=== PATIENT | female | born 1995 | race Caucasian/White ===

== ENCOUNTER 2017-07-28 22:39 | Emergency (ER) | payer OTHER, MEDICAID, SELFPAY ==
[2017-07-28 22:44] VITALS: BP 145/91; PULSE 98; RESP 22; TEMP 36.8; O2SAT 96
--- NOTE | 2017-07-28 22:45 | ED.URI ---
HPI - URI/Sore Throat General Chief Complaint: Upper Respiratory Symptoms Stated Complaint: RIB PAIN HURTS TO BREATH Time Seen by Provider: 07/28/17 22:44 Source: patient and RN notes reviewed Mode of arrival: ambulatory Limitations: no limitations History of Present Illness HPI Narrative: Patient is a 22-year-old female presents with cough and shortness of breath for about 1 week. She is not coughing anything up but she feels as though she can't take a deep breath. Now the right side of her ribs are hurting. It hurts to move. She does not think she has had fever she does have some nasal congestion. No sore throat. MD Complaint: cough and nasal congestion Onset (ago): week(s) Duration: constant Relieving factors: nothing Related Data Home Medications Medication Instructions Recorded Confirmed CA PANTOTHENATE/FOLIC ACID/VIT 1 tab PO QDAY #0 05/06/12 (MULTIVITAMIN) [STELAZINE] #0 09/25/16 aripiprazole [Abilify] #0 09/25/16 lamotrigine [Lamictal] #0 09/25/16 lithium carbonate 07/28/17 Previous Rx's Medication Instructions Recorded fluoxetine 40 mg PO QDAY #90 cap 12/21/15 drospirenone-ethinyl estradiol 1 tab PO QDAY #3 pac 06/28/16 [Jennifer (28)] sulfamethoxazole-trimethoprim 1 tab PO BID #12 tab 09/26/16 sulfamethoxazole-trimethoprim 1 tab PO BID #12 tab 10/07/16 Allergies Allergy/AdvReac Type Severity Reaction Status Date / Time No Known Drug Allergies Allergy Verified 07/28/17 22:47 Review of Systems Review of Systems All systems reviewed & are unremarkable except as noted in HPI and below Constitutional Denies chills, Denies fever(s), Denies headache(s), Denies lethargy and Denies weakness ENT Ears, Nose, Mouth, and Throat: Denies headache(s) Cardiovascular Denies chest pain, Denies irregular heart rhythm, Denies lightheadedness, Denies palpitations and Denies orthopnea Respiratory Reports as per HPI and Reports system reviewed and no additional complaints, except as docu Gastrointestinal Gastrointestinal: Denies abdominal pain, Denies diarrhea, Denies nausea and Denies vomiting Neurologic Denies headache(s) and Denies weakness Endocrine Denies palpitations PFSH Family History Father Age: 44 Hypertension High cholesterol Mother Age: 41 Mental health problem Crohn's disease Grandmother Age: 67 Diabetes mellitus Hypertension High cholesterol Exam Const General: cooperative and well developed Nutritional Appearance: well nourished Orientation: alert, awake, oriented x3 and not confused Chest Chest: normal inspection of the chest Resp Effort & Inspection: normal respiratory effort, able to speak in complete sentences, no respiratory distress and no use of accessory muscles Auscultation: clear to auscultation bilaterally, no rales, no rhonchi and no wheezes Cardio Rate: regular rate Rhythm: regular rhythm Heart Sounds: no click, no gallops, no murmurs and no rubs Pulses: normal peripheral pulses Skin General: no rashes or lesions noted, No jaundice and No petechiae MDM - URI/Sore Throat Imaging Data Chest x-ray: Attestation: I personally reviewed and interpreted this imaging study as follows: My impression: no acute process Course Orders Ordered: ED Orders 07/28/17 22:55 XR chest 2V Stat Discontinued Medications Albuterol (Ventolin) 2.5 mg INH NOW ONE Stop: 07/28/17 22:56 Last Admin: 07/28/17 23:13 Dose: 2.5 mg Albuterol (Ventolin Hfa Prepack) 1 box MISC SEEINSTR ONE Stop: 07/28/17 23:26 Last Admin: 07/28/17 23:32 Dose: 1 box Last Vital Signs Temp 98.2 F 07/28/17 22:44 Pulse 96 H 07/28/17 23:32 Resp 18 07/28/17 23:17 BP 148/94 H 07/28/17 23:32 Pulse Ox 99 07/28/17 23:17 Discharge Plan Departure Patient Disposition: Home, Self-Care Clinical Impression: Mild intermittent reactive airway disease Discharge Date/Time: 07/28/17 23:37 Interventions: ED Discharge Assessment Last Done: 07/28/17 23:37 Instructions: DI for Reactive Airway Disease-Adult Activity Restrictions/Additional Instructions: *You have been diagnosed with reactive airways-airway spasming *What to do: No need for antibiotics at this time likely due to pollen allergies, possible viral infection as well *Take medications as directed -albuterol inhaler with spacer every 4 hr if needed for coughing or shortness of breath *Follow up with your primary care provider in 2-3 days *Return to ER if you should have any new, worsening or concerning symptoms Prescriptions: No Action CA PANTOTHENATE/FOLIC ACID/VIT (MULTIVITAMIN) 1 tab PO QDAY Qty: 0 RF: 0 fluoxetine 40 MG capsule 40 mg PO QDAY Qty: 90 RF: 3 drospirenone-ethinyl estradiol [Jennifer (28)] 0.03 MG/3 MG tablet 1 tab PO QDAY Qty: 3 RF: 3 lamotrigine [Lamictal] 100 MG tablet Qty: 0 RF: 0 [STELAZINE] Qty: 0 RF: 0 aripiprazole [Abilify] 2 MG tablet Qty: 0 RF: 0 sulfamethoxazole-trimethoprim 800 MG/160 MG tablet 1 tab PO BID Qty: 12 RF: 0 sulfamethoxazole-trimethoprim 800 MG/160 MG tablet 1 tab PO BID Qty: 12 RF: 0 lithium carbonate RF: 0
--- NOTE | 2017-07-28 22:55 | DI.RAD.S_ITS ---
PROCEDURE: XR CHEST 2V INDICATIONS: chest pain right side with cough TECHNIQUE: 2 views of the chest were acquired. COMPARISON: None. FINDINGS: Surgical changes and devices: None. Lungs and pleura: No pleural effusions or pneumothorax. Lungs are clear. Mediastinum: Mediastinal contours are normal. Heart size is normal. Bones and chest wall: No suspicious bony abnormalities. Soft tissues appear unremarkable. IMPRESSION: No source of chest pain found. Dictated by: Gallito Felton M.D. on 07/29/2017 at 9:07 Approved by: Gallito Felton M.D. on 07/29/2017 at 9:08
[2017-07-28] MEDS: ALBUTEROL 2.5 MG/3 ML NEB INH (23:13)
[2017-07-28 23:17] VITALS: PULSE 97; RESP 18; O2SAT 99
[2017-07-28 23:32] VITALS: BP 148/94; PULSE 96
[2017-07-28] MEDS: ALBUTEROL HFA PREPACK 1 BOX MISC (23:32)
== END 2017-07-28 23:37 | disposition home or self-care (01) ==
PROVIDERS: Emergency Provider Emergency Medicine; Family Provider Pediatrics; PCP Family Medicine
DX: J45.20 Mild intermittent asthma, uncomplicated (principal)
CPT/HCPCS: 71046; 94640; 99282; 99283; J7613

== ENCOUNTER 2019-12-08 03:09 | Emergency (ER) | payer OTHER, MEDICARE, MEDICAID, SELFPAY ==
--- NOTE | 2019-12-08 03:11 | ED.SYNCOPE ---
HPI - Syncope General Chief Complaint: Headache Stated Complaint: having fainting spells back pain migraine x 8 days Time Seen by Provider: 12/08/19 03:10 Source: patient and family Mode of arrival: Ambulatory Limitations: no limitations History of Present Illness HPI narrative: 24F smoker presents with a friend and a list of multiple complaints including headache, chest pain, nausea over the past week. She has been having headaches for 3 years but has yet to have an evaluation for it. She denies blurred or double vision. She denies any fever, chills or neck pain. She states the pain is largely in the front of her forehead and squeezing in nature. It gets worse with bright lights and loud noise and has not improved with the use of ?migraine pills? period. Her chest pain is sharp and stabbing in nature in and the center of her chest. She denies any provocation, palliation or radiation. She denies shortness of breath, cough or hemoptysis. She denies any change in medications or diet. She has had episodes lightheadedness, particularly upon standing. She has PCOS and states it is frequent for her to have irregular periods, her last was in August but she denies any chance of being . She denies vaginal bleeding or discharge. She denies dysuria, frequency or urgency. MD complaint: felt faint and almost passed out Witnessed: no Injuries sustained associated with event: none Current symptoms: other Related Data Home Medications Medication Instructions Recorded Confirmed CA PANTOTHENATE/FOLIC ACID/VIT 1 tab PO QDAY #0 05/06/12 (MULTIVITAMIN) [STELAZINE] #0 09/25/16 aripiprazole [Abilify] #0 09/25/16 lamotrigine [Lamictal] #0 09/25/16 lithium carbonate 07/28/17 Previous Rx's Medication Instructions Recorded fluoxetine 40 mg PO QDAY #90 cap 12/21/15 drospirenone-ethinyl estradiol 1 tab PO QDAY #3 pac 06/28/16 [Jennifer (28)] sulfamethoxazole-trimethoprim 1 tab PO BID #12 tab 09/26/16 sulfamethoxazole-trimethoprim 1 tab PO BID #12 tab 10/07/16 Allergies Allergy/AdvReac Type Severity Reaction Status Date / Time No Known Drug Allergies Allergy Verified 07/28/17 22:47 Review of Systems Constitutional Constitutional: Denies chills, Denies fatigue, Denies fever(s), Denies frequent falls, Reports headache(s), Denies lethargy and Denies weakness Eyes Eyes: Denies change in vision, Denies eye discharge, Denies irritation and Denies loss of vision ENT Ears, Nose, Mouth, and Throat: Denies change in voice, Denies dizziness, Reports headache(s), Denies neck pain, Denies sore throat and Denies throat swelling Cardiovascular Cardiovascular: Reports chest pain, Denies irregular heart rhythm, Reports lightheadedness, Denies palpitations, Denies dyspnea, Denies dyspnea on exertion and Denies orthopnea Respiratory Respiratory: Denies cough, Denies dyspnea, Denies dyspnea on exertion and Denies wheezing Gastrointestinal Gastrointestinal: Denies abdominal pain, Denies change in bowel habits, Denies diarrhea, Denies nausea and Denies vomiting Musculoskeletal Musculoskeletal: Denies neck pain and Denies numbness Integumentary/Breasts Skin/Breast: Denies pruritus, Denies erythema, Denies rash and Denies wounds Neurologic Neurologic: Denies behavioral changes, Denies confusion, Denies dizziness, Denies frequent falls, Reports headache(s), Denies loss of vision, Denies numbness and Denies weakness Psychiatric Psychiatric: Denies anxiety, Denies behavioral changes, Denies confusion, Denies depression, Denies homicidal ideation and Denies suicidal ideation Endocrine Endocrine: Denies fatigue, Denies flushing and Denies palpitations Hematologic/Lymphatic Hematologic/Lymphatic: Denies easy bruising Allergic/Immunologic Allergic/Immunologic: Denies urticaria, Denies throat swelling and Denies wheezing Patient History Family History Father Age: 46 Hypertension High cholesterol Mother Age: 43 Mental health problem Crohn's disease Grandmother Age: 69 Diabetes mellitus Hypertension High cholesterol Social History Smoking Status: Current some day smoker Smoking Status: Current some day smoker alcohol intake frequency: 0-2 drinks per day Substance Use Type: marijuana Exam Narrative Exam Narrative: GENERAL: [24] year old patient appears stated age. Well-nourished, well-developed patient, in mild distress. HEAD: Atraumatic. Normocephalic. EYES: Pupils equal round and reactive. Extraocular motions intact. No scleral icterus. No injection or drainage. ENT: Nose without bleeding, purulent drainage. Throat without erythema, tonsillar hypertrophy or exudate. Airway patent. NECK: Trachea midline. Non tender CARDIOVASCULAR: Regular rate and rhythm without murmurs, gallops, or rubs. RESPIRATORY: Clear to auscultation. Breath sounds equal bilaterally. No wheezes, rales, or rhonchi. GASTROINTESTINAL: Abdomen soft, non-tender, nondistended. EXTREMITIES: No edema or joint tenderness. BACK: Nontender without deformity or crepitance. No flank tenderness. NEURO: AOx3. SKIN: No rash or erythema of visible areas Initial Vital Signs Initial Vital Signs: Vital Signs Temperature 98.9 F 12/08/19 03:24 Pulse Rate 85 12/08/19 03:24 Respiratory Rate 17 12/08/19 03:24 Blood Pressure 165/107 H 12/08/19 03:24 Pulse Oximetry 97 12/08/19 03:24 Course Orders Ordered: Discontinued Medications Diphenhydramine HCl (Benadryl) 25 mg IV NOW ONE Stop: 12/08/19 04:38 Last Admin: 12/08/19 04:45 Dose: 25 mg Documented by: PHILIN Sodium Chloride (Normal Saline 0.9%) 1,000 mls @ 1,000 mls/hr IV BOLUS ONE Stop: 12/08/19 04:10 Last Infusion: 12/08/19 05:15 Dose: 0 mls/hr Documented by: Admin: 12/08/19 04:30 Dose: 1,000 mls/hr Documented by: RMULIIN Ketorolac Tromethamine (Toradol) 15 mg IV NOW ONE Stop: 12/08/19 04:38 Last Admin: 12/08/19 04:43 Dose: 15 mg Documented by: GLENARTIN Metoclopramide HCl (Reglan) 5 mg IV NOW ONE Stop: 12/08/19 04:38 Last Admin: 12/08/19 04:42 Dose: 5 mg Documented by: RMARTIN Vital Signs Vital signs: Vital Signs - 8 hr 12/08/19 03:24 Temperature 98.9 F Pulse Rate 85 Respiratory Rate 17 Blood Pressure 165/107 H Pulse Oximetry 97 MDM - Syncope Lab Data Result diagrams: 12/08/19 04:06 12/08/19 04:06 Labs: Lab Results 12/08/19 12/08/19 12/08/19 Range/Units 04:06 04:06 04:06 WBC 10.7 (4.5-11.0) X10^3/uL RBC 4.70 (4.0-5.2) X10^6/uL Hgb 13.1 (12.0-16.0) g/dL Hct 39.3 (36-46) % MCV 83.6 (80-100) fL MCH 27.9 (26-34) PG MCHC 33.3 (30-36) % RDW 14.9 H (11.6-14.8) % Plt Count 353 (150-400) X10^3/uL Neut % (Auto) 45.4 L (50-75) % Lymph % (Auto) 40.2 H (25-40) % [place] % (Auto) 11.0 (3-14) % Eos % (Auto) 2.8 (2-4) % Baso % (Auto) 0.6 (0-2) % Neut # (Auto) 4900 (9763-9291) /uL Lymph # (Auto) 4300 (0715-6039) /uL [place] # (Auto) 1200 H (0-900) /uL Eos # (Auto) 300 (0-450) /uL Baso # (Auto) 100 (0-100) /uL D-Dimer < 200 (<230) ng/mL Sodium 141 (137-145) mmol/L Potassium 4.3 (3.4-5.1) mmol/L Chloride 106 (98-107) mmol/L Carbon Dioxide 27 (22-32) mmol/L BUN 10 (7-17) mg/dL Creatinine 0.68 (0.52-1.04) mg/dL Estimated GFR > 60.0 (>60) mL/min BUN/Creatinine Ratio 14.7 (6-22) Glucose 87 (70-100) mg/dL Calcium 9.2 (8.4-10.2) mg/dL Point of Care Testing Test Results Negative Urine Dip Bedside Urine Glucose Negative Bedside Urine Bilirubin - Negative Bedside Urine Ketone - Negative Urine Specific [place] 1.030 Bedside Urine Occult Blood - Negative Bedside Urine pH 6.0 Bedside Urine Protein - Negative Bedside Urine Urobilinogen - Negative Bedside Urine Nitrite - Negative Bedside Urine Leukocytes - Negative Esterase Discharge Plan Departure Patient Disposition: Home Clinical Impression: Atypical chest pain Headache Qualifiers: Headache type: unspecified Headache chronicity pattern: acute headache Intractability: not intractable Qualified Code(s): R51 - Headache Discharge Date/Time: 12/08/19 05:17 Instructions: DI for Headache Activity Restrictions/Additional Instructions: *You have been diagnosed with [headache, atypical chest pain near syncope] *What to do: *Take medications as directed *Follow up with your primary care provider in 2-3 days, call for an appointment. Let them know you were seen in the Emergency Department and that we ask that you be seen in follow up *Return to ER if you should have any new, worsening or concerning symptoms Prescriptions: No Action CA PANTOTHENATE/FOLIC ACID/VIT (MULTIVITAMIN) 1 tab PO QDAY Qty: 0 RF: 0 fluoxetine 40 MG capsule 40 mg PO QDAY Qty: 90 RF: 3 drospirenone-ethinyl estradiol [Jennifer (28)] 0.03 MG/3 MG tablet 1 tab PO QDAY Qty: 3 RF: 3 lamotrigine [Lamictal] 100 MG tablet Qty: 0 RF: 0 [STELAZINE] Qty: 0 RF: 0 aripiprazole [Abilify] 2 MG tablet Qty: 0 RF: 0 sulfamethoxazole-trimethoprim 800 MG/160 MG tablet 1 tab PO BID Qty: 12 RF: 0 sulfamethoxazole-trimethoprim 800 MG/160 MG tablet 1 tab PO BID Qty: 12 RF: 0 lithium carbonate RF: 0 Referrals: Emely Miller MD [Primary Care Provider] -
--- NOTE | 2019-12-08 03:17 | DI.RAD.S_ITS ---
PROCEDURE: XR CHEST 1V INDICATIONS: chest pain, near syncope TECHNIQUE: One view of the chest was acquired. COMPARISON: [facility], CR, XR CHEST 2V, 07/28/2017, 22:43. FINDINGS: Surgical changes and devices: None. Lungs and pleura: Lungs are clear. No pleural effusions or pneumothorax. Mediastinum: Mediastinal contours appear normal. Heart size is normal. Elevated right hemidiaphragm. Bones and chest wall: No suspicious bony lesions. Overlying soft tissues appear unremarkable. IMPRESSION: No acute cardiopulmonary disease process. Dictated by: Mirta Rivera MD, PhD on 12/08/2019 at 8:27 Approved by: Mirta Rivera MD, PhD on 12/08/2019 at 8:30
[2019-12-08 03:24] VITALS: BP 165/107; PULSE 85; RESP 17; TEMP 37.2; O2SAT 97; BMI 51.5
[2019-12-08 04:23] LABS: Add Manual Diff / Slide Review NO; Basophils Absolute Auto 100 /uL (0-100); Basophils Percent Auto 0.6 % (0-2); Eosinophils Absolute Auto 300 /uL (0-450); Eosinophils Percent Auto 2.8 % (2-4); Hematocrit 39.3 % (36-46); Hemoglobin 13.1 g/dL (12.0-16.0); Lymphocytes Absolute Auto 4300 /uL (1100-4500); Lymphocytes Percent Auto 40.2 % (25-40); Mean Corpuscular HGB Conc 33.3 % (30-36); Mean Corpuscular Hemoglobin 27.9 PG (26-34); Mean Corpuscular Volume 83.6 fL (80-100); Monocytes Absolute Auto 1200 /uL (0-900); Neutrophils Absolute Auto 4900 /uL (1500-7000); Neutrophils Percent Auto 45.4 % (50-75); Platelet Count 353 X10^3/uL (150-400); Red Cell Distribution Width 14.9 % (11.6-14.8); White Blood Cell Count 10.7 X10^3/uL (4.5-11.0)
[2019-12-08] MEDS: SODIUM CHLORIDE 0.9% 1,000 ML 1000 ML IV (04:30)
[2019-12-08 04:32] LABS: D Dimer < 200 ng/mL (<230)
[2019-12-08 04:34] LABS: BUN Creatinine Ratio 14.7 (6-22); Blood Urea Nitrogen 10 mg/dL (7-17); Calcium 9.2 mg/dL (8.4-10.2); Carbon Dioxide 27 mmol/L (22-32); Chloride 106 mmol/L (98-107); Estimated Glomerular Filt Rate > 60.0 mL/min (>60); Glucose 87 mg/dL (70-100); HEMOLYSIS < 15 (0-50); Potassium 4.3 mmol/L (3.4-5.1); Sodium 141 mmol/L (137-145)
[2019-12-08] MEDS: METOCLOPRAMIDE 10 MG/2 ML INJ 5 MG IV (04:42)
[2019-12-08] MEDS: KETOROLAC 60 MG/2 ML VIAL 15 MG IV (04:43)
[2019-12-08] MEDS: diphenhydrAMINE 50 MG/ML VIAL 25 MG IV (04:45)
[2019-12-08 05:17] VITALS: BP 175/81; PULSE 95; RESP 16; O2SAT 96
== END 2019-12-08 05:17 | disposition home or self-care (01) ==
PROVIDERS: Emergency Provider Emergency Medicine; Family Provider Pediatrics; PCP Family Medicine
DX: R51 Headache (principal); R07.89 Other chest pain
CPT/HCPCS: 36415; 71045; 80048; 81003; 81025; 85025; 85379; 93005; 93010; 96361; 96374; 96375; 99284; J1200; J1885; J2765

== ENCOUNTER 2020-10-09 16:59 | Emergency (ER) | payer OTHER, MEDICARE, MEDICAID, SELFPAY ==
[2020-10-09 17:04] VITALS: BP 146/84; PULSE 87; RESP 12; TEMP 36.3; O2SAT 98; BMI 56.6
--- NOTE | 2020-10-09 18:15 | DI.US.S_ITS ---
PROCEDURE: US PELVIC COMPLETE INDICATIONS: possible ruptured cyst with PCOS TECHNIQUE: Real-time scanning was performed of the pelvic organs, with image documentation. Additional endovaginal scanning was necessary due to incomplete visualization of the adnexal and endometrial structures by transabdominal scanning. COMPARISON: [facility], US, US PELVIC COMPLETE WITH TRANSVAGINAL, 04/22/2019, 16:06. FINDINGS: Uterus: Uterus is normal in size at 7.8 x 3.7 x 3.8 cm. The endometrium measures 8 mm in combined thickness. Small nabothian cysts are present. Ovaries: The right ovary measures 3.9 x 1.9 x 2.1 cm. The left ovary measures 2.3 x 1.7 x 1.9 cm. Arterial Doppler flow is visualized bilaterally. Small ovarian follicles are seen bilaterally. Other: A physiologic amount of fluid is seen in the pelvic cul-de-sac. IMPRESSION: No acute sonographic abnormality is seen in the pelvis. No sonographic signs of ovarian torsion. Recommend clinical correlation. Dictated by: Bill Ellington M.D. on 10/09/2020 at 19:09 Approved by: Bill Ellington M.D. on 10/09/2020 at 19:11
[2020-10-09 19:35] LABS: Bacteria Urine Moderate (10-30); Culture Indicated Urine Specimen Cultured; Mucus Urine 1+ (Negative); RBC Urine 0-1/HPF (0-5/HPF); Squamous Epithelial Cell Urine 1-5 /HPF (0-5/HPF); Transitional Epi Cells Urine 5-10/HPF (0-5/HPF); WBC Urine 10-30/HPF (0-5/HPF)
--- NOTE | 2020-10-09 19:42 | ED_ITS ---
HPI - General Adult General Chief complaint: Abdominal Pain Stated complaint: RAPTURED CYST Time Seen by Provider: 10/09/20 18:15 Mode of arrival: Ambulatory History of Present Illness HPI narrative: Patient is a 25-year-old female with a history of PCOS who is her e for evaluation of left-sided adnexa pain. It has been present for about 1 week. Is having some vaginal discharge. Also having some dysuria. No fevers. States it does feel somewhat like a prior ruptured cyst. Has taken some ibuprofen with some improvement. Related Data Home Medications Medication Instructions Recorded Confirmed CA PANTOTHENATE/FOLIC ACID/VIT 1 tab PO QDAY #0 05/06/12 (MULTIVITAMIN) [STELAZINE] #0 09/25/16 aripiprazole 2 mg tablet (Abilify) #0 09/25/16 lamotrigine 100 mg tablet #0 09/25/16 (Lamictal) lithium carbonate 07/28/17 Previous Rx's Medication Instructions Recorded fluoxetine 40 mg capsule 40 mg PO QDAY #90 cap 12/21/15 drospirenone 3 mg-ethinyl 1 tab PO QDAY #3 pac 06/28/16 estradiol 0.03 mg tablet (Jennifer (28)) sulfamethoxazole 800 1 tab PO BID #12 tab 09/26/16 mg-trimethoprim 160 mg tablet sulfamethoxazole 800 1 tab PO BID #12 tab 10/07/16 mg-trimethoprim 160 mg tablet Allergies Allergy/AdvReac Type Severity Reaction Status Date / Time No Known Drug Allergies Allergy Verified 10/09/20 17:11 Review of Systems Constitutional Constitutional: Denies fever(s) Cardiovascular Cardiovascular: Reports system reviewed and no additional complaints, except as documented Respiratory Respiratory: Reports system reviewed and no additional complaints, except as documented Gastrointestinal Gastrointestinal: Reports as per HPI Genitourinary Genitourinary: Reports as per HPI Musculoskeletal Musculoskeletal: Denies back pain Integumentary/Breasts Skin/Breast: Reports system reviewed and no additional complaints, except as documented Neurologic Neurologic: Reports system reviewed and no additional complaints, except as documented Psychiatric Psychiatric: Reports system reviewed and no additional complaints, except as documented Hematologic/Lymphatic On Anticoagulants: No Allergic/Immunologic Allergic/Immunologic: Reports system reviewed and no additional complaints, except as documented Patient History Medical History Bipolar disorder Depression Suicidal ideation UTI (urinary tract infection) Family History Father Age: 47 Hypertension High cholesterol Mother Age: 44 Mental health problem Crohn's disease Grandmother Age: 70 Diabetes mellitus Hypertension High cholesterol Social History Smoking Status: Current some day smoker Smoking Status: Current some day smoker alcohol intake frequency: 0-2 drinks per day Substance Use Type: marijuana Exam Initial Vital Signs Initial Vital Signs: Vital Signs Temperature 97.4 F L 10/09/20 17:04 Pulse Rate 87 10/09/20 17:04 Respiratory Rate 12 10/09/20 17:04 Blood Pressure 146/84 H 10/09/20 17:04 Pulse Oximetry 98 10/09/20 17:04 Const General: cooperative and comfortable HENMT Head: normal to inspection and normocephalic Resp Auscultation: clear to auscultation bilaterally Cardio Rate: regular rate Rhythm: regular rhythm GI Inspection: normal to inspection Palpation: soft, No firm, No guarding, No mass and tender (Left adnexa) Skin General: no rashes or lesions noted Neuro General: patient alert, patient awake, patient oriented x3 and moves all extremities Extrem General: normal to inspection and capillary refill normal Psych Appearance: grossly normal and well kempt Course Orders Ordered: ED Orders 10/09/20 18:15 US pelvic complete Stat Vital Signs Vital signs: Vital Signs - 8 hr 10/09/20 20:02 Pulse Rate 94 H Respiratory Rate 16 Blood Pressure 147/84 H Pulse Oximetry 95 Medical Decision Making Lab Data Lab results reviewed: Yes I reviewed the patient's lab results. Labs: Lab Results 10/09/20 Range/Units 16:15 Urine RBC 0-1/hpf (0-5/HPF) Urine WBC 10-30/hpf H (0-5/HPF) Ur Squamous Epith Cells 1-5 /hpf (0-5/HPF) Ur Transition Epith Cell 5-10/hpf H (0-5/HPF) Urine Bacteria Moderate (10-30) H (None) Urine Mucus 1+ H (Negative) Ur Culture Indicated? Specimen cultured Point of Care Testing Test Results Negative Urine Dip Bedside Urine Glucose Negative Bedside Urine Bilirubin - Negative Bedside Urine Ketone - Negative Bedside Urine Occult Blood - Negative Bedside Urine Protein - Negative Bedside Urine Urobilinogen - Negative Bedside Urine Nitrite - Negative Bedside Urine Leukocytes + 70 Esterase Point of care testing: Point of Care Testing Test Results Negative Urine Dip Bedside Urine Glucose Negative Bedside Urine Bilirubin - Negative Bedside Urine Ketone - Negative Bedside Urine Occult Blood - Negative Bedside Urine Protein - Negative Bedside Urine Urobilinogen - Negative Bedside Urine Nitrite - Negative Bedside Urine Leukocytes + 70 Esterase Imaging Data US - CERTIFIED NURSING ATTENDANT: Radiologist's Impression: [address] [id number] ReportSigned Patient: Alicia Mays MMR#: [id number]: 1995Acct:[id number]/Sex: 25 / FDate of Service: 10/09/20Loc: EDAccession Number: [id number] Procedure: US pelvic complete Ordering Provider: Flako Chaiedz D.O. PROCEDURE: US PELVIC COMPLETE INDICATIONS: possible ruptured cyst with PCOS TECHNIQUE: Real-time scanning was performed of the pelvic organs, with image documentation. Additional endovaginal scanning was necessary due to incomplete visualization of the adnexal and endometrial structures by transabdominal scanning. COMPARISON: [email or web address], US, US PELVIC COMPLETE WITH TRANSVAGINAL, 04/22/2019, 16:06. FINDINGS: Uterus: Uterus is normal in size at 7.8 x 3.7 x 3.8 cm. The endometrium measures 8 mm in combined thickness. Small nabothian cysts are present. Ovaries: The right ovary measures 3.9 x 1.9 x 2.1 cm. The left ovary measures 2.3 x 1.7 x 1.9 cm. Arterial Doppler flow is visualized bilaterally. Small ovarian follicles are seen bilaterally. Other: A physiologic amount of fluid is seen in the pelvic cul-de-sac. IMPRESSION: No acute sonographic abnormality is seen in the pelvis. No sonographic signs of ovarian torsion. Recommend clinical correlation. Dictated by: Bill Ellington M.D. on 10/09/2020 at 19:09 Approved by: Bill Ellington M.D. on 10/09/2020 at 19:11 [facility] Narrative Medical decision making narrative: Patient has a benign abdominal exam today. The x-ray did not show any signs of ovarian torsion or of a cyst. She does have some free fluid in her pelvis and potentially she has ruptured a cyst causing her discomfort. I have low suspicion for other intra-abdominal surgical pathology given her exam today so feel that we should wait on the CT scan. She is having some urinary frequency. She does have bacteria and white blood cells in her urine but also quite a bit of epi cells. Because of this we will wait for a culture to results before treating with any antibiotics. She was informed of a culture that was pending at the time of her discharge will contact her if we need to start antibiotics. She was given strict return precautions and follow-up instructions. She expressed understanding and agreement. Discharge Plan Departure Patient Disposition: Home Clinical Impression: Abdominal pain Instructions: DI for Abdominal Pain-Adult Activity Restrictions/Additional Instructions: A urine culture was pending at the time of your discharge. We will contact you if we need to start any antibiotics. Continue the rest of your medications as directed. Keep all of your scheduled medical appointments. Return to the emergency department for any new or worsening symptoms Prescriptions: No Action CA PANTOTHENATE/FOLIC ACID/VIT (MULTIVITAMIN) 1 tab PO QDAY Qty: 0 RF: 0 fluoxetine 40 MG capsule 40 mg PO QDAY Qty: 90 RF: 3 drospirenone-ethinyl estradiol [Jennifer (28)] 0.03 MG/3 MG tablet 1 tab PO QDAY Qty: 3 RF: 3 lamotrigine [Lamictal] 100 MG tablet Qty: 0 RF: 0 [STELAZINE] Qty: 0 RF: 0 aripiprazole [Abilify] 2 MG tablet Qty: 0 RF: 0 sulfamethoxazole-trimethoprim 800 MG/160 MG tablet 1 tab PO BID Qty: 12 RF: 0 sulfamethoxazole-trimethoprim 800 MG/160 MG tablet 1 tab PO BID Qty: 12 RF: 0 lithium carbonate RF: 0
[2020-10-09 20:02] VITALS: BP 147/84; PULSE 94; RESP 16; O2SAT 95
== END 2020-10-09 20:02 | disposition home or self-care (01) ==
PROVIDERS: Emergency Provider Emergency Medicine; Family Provider Pediatrics
DX: R10.9 Unspecified abdominal pain (principal); N89.8 Other specified noninflammatory disorders of vagina; R30.0 Dysuria
CPT/HCPCS: 76830; 76856; 81003; 81015; 81025; 87086; 99282; 99283

== ENCOUNTER 2021-03-06 11:38 | Emergency (ER) | payer OTHER, MEDICAID, SELFPAY ==
[2021-03-06 11:44] VITALS: BP 146/100; PULSE 109; RESP 18; TEMP 37; O2SAT 99; BMI 60.5
--- NOTE | 2021-03-06 12:49 | DI.CT.S_ITS ---
PROCEDURE: CT LUMBAR SPINE WO CON INDICATIONS: Lower back pain TECHNIQUE: Noncontrast 3 mm thick sections acquired from the T12 level to the sacrum. Sagittal and coronal reformats were constructed. For radiation dose reduction, the following was used: automated exposure control. COMPARISON: None. FINDINGS: Image quality: Excellent. Bones: There is normal bony alignment. No acute vertebral body compression fractures. No suspicious lytic or blastic bony lesions. No pars defects. Soft tissues: No retroperitoneal masses or hematomas. Visualized aorta is normal in caliber. Gallbladder is surgically absent. Partially visualized intrauterine device is centrally positioned within the uterus where visualized. IMPRESSION: No fracture. No acute osseous lesion. If symptoms and/or clinical suspicion for pathology persists, evaluation with MRI should be considered for further assessment. Dictated by: Mirta Rivera MD, PhD on 03/06/2021 at 13:16 Approved by: Mirta Rivera MD, PhD on 03/06/2021 at 13:17
--- NOTE | 2021-03-06 12:51 | ED.BACK ---
HPI - Back Pain/Injury <Anitra Garcia PA-C - Last Filed: 03/06/21 14:00> General Chief Complaint: Back Pain/Injury Stated Complaint: Severe Lower back pain Time Seen by Provider: 03/06/21 11:59 Source: patient and family History of Present Illness HPI Narrative: 26-year-old female with past medical history PCOS presents to the ED with 4 months of lower back pain. Patient denies trauma, but says she went camping in October after which her lower back pain started. Pain does not radiate down the legs. Patient denies numbness, tingling, weakness. Patient denies IV drug use. Patient denies urinary hesitancy, saddle paresthesias. Denies fever, chills, chest pain, shortness of breath, cough, nausea, vomiting, dysuria, lightheadedness, dizziness, syncope. Patient states that Tylenol and ibuprofen make her jittery. Patient has been trying CBD cream with moderate relief. Related Data Home Medications Medication Instructions Recorded Confirmed CA PANTOTHENATE/FOLIC ACID/VIT 1 tab PO QDAY #0 05/06/12 (MULTIVITAMIN) [STELAZINE] #0 09/25/16 aripiprazole 2 mg tablet (Abilify) #0 09/25/16 lamotrigine 100 mg tablet #0 09/25/16 (Lamictal) lithium carbonate 07/28/17 Previous Rx's Medication Instructions Recorded fluoxetine 40 mg capsule 40 mg PO QDAY #90 cap 12/21/15 drospirenone 3 mg-ethinyl 1 tab PO QDAY #3 pac 06/28/16 estradiol 0.03 mg tablet (Jennifer (28)) sulfamethoxazole 800 1 tab PO BID #12 tab 09/26/16 mg-trimethoprim 160 mg tablet sulfamethoxazole 800 1 tab PO BID #12 tab 10/07/16 mg-trimethoprim 160 mg tablet Allergies Allergy/AdvReac Type Severity Reaction Status Date / Time No Known Drug Allergies Allergy Verified 10/09/20 17:11 Review of Systems <Anitra Garcia PA-C - Last Filed: 03/06/21 14:00> Review of Systems ROS Unobtainable: All systems reviewed & are unremarkable except as noted in HPI and below Constitutional Constitutional: Denies chills, Denies fatigue, Denies fever(s), Denies frequent falls, Denies lethargy and Denies weakness Eyes Eyes: Denies change in vision, Denies eye discharge, Denies irritation and Denies loss of vision ENT Ears, Nose, Mouth, and Throat: Denies change in voice, Denies dizziness, Denies neck pain, Denies sore throat and Denies throat swelling Cardiovascular Cardiovascular: Denies chest pain, Denies irregular heart rhythm, Denies lightheadedness, Denies palpitations, Denies dyspnea, Denies dyspnea on exertion and Denies orthopnea Respiratory Respiratory: Denies cough, Denies dyspnea, Denies dyspnea on exertion and Denies wheezing Gastrointestinal Gastrointestinal: Denies abdominal pain, Denies change in bowel habits, Denies diarrhea, Denies nausea and Denies vomiting Genitourinary Genitourinary: Denies hematuria, Denies flank pain, Denies urinary incontinence and Denies urinary urgency Musculoskeletal Musculoskeletal: Reports back pain, Denies muscle weakness, Denies neck pain, Denies numbness and Denies tingling Integumentary/Breasts Skin/Breast: Denies pruritus, Denies erythema, Denies rash and Denies wounds Neurologic Neurologic: Denies behavioral changes, Denies confusion, Denies dizziness, Denies frequent falls, Denies loss of vision, Denies numbness, Denies tingling and Denies weakness Psychiatric Psychiatric: Denies anxiety, Denies behavioral changes, Denies confusion, Denies depression, Denies homicidal ideation and Denies suicidal ideation Endocrine Endocrine: Denies fatigue, Denies flushing and Denies palpitations Hematologic/Lymphatic Hematologic/Lymphatic: Denies easy bruising Allergic/Immunologic Allergic/Immunologic: Denies urticaria, Denies throat swelling and Denies wheezing Patient History <Anitra Garcia PA-C - Last Filed: 03/06/21 14:00> Medical History Bipolar disorder Depression Suicidal ideation UTI (urinary tract infection) Family History Father Age: 48 Hypertension High cholesterol Mother Age: 45 Mental health problem Crohn's disease Grandmother Age: 71 Diabetes mellitus Hypertension High cholesterol Social History Smoking Status: Current some day smoker Smoking Status: Current some day smoker alcohol intake frequency: 0-2 drinks per day Substance Use Type: marijuana Exam <Anitra Garcia PA-C - Last Filed: 03/06/21 14:00> Initial Vital Signs Initial Vital Signs: Vital Signs Temperature 98.6 F 03/06/21 11:44 Pulse Rate 109 H 03/06/21 11:44 Respiratory Rate 18 03/06/21 11:44 Blood Pressure 146/100 H 03/06/21 11:44 Pulse Oximetry 99 03/06/21 11:44 Const General: cooperative, healthy appearing and comfortable [facility] Head: normal to inspection Eyes General: appearance normal, both eyes and all related structures Neck Neck: normal visual inspection Resp Effort & Inspection: normal respiratory effort Auscultation: clear to auscultation bilaterally Cardio Rate: regular rate Rhythm: regular rhythm General: No CVA tenderness Back/Spine/Pelvis Back: normal to inspection, No CVA tenderness, No ecchymosis and No erythema Thoracic/Lumbar Spine: pain with thoraco-lumbar ROM, paraspinal tenderness, lumbar spinal tenderness and straight leg raise positive Skin General: no rashes or lesions noted Neuro General: patient alert, patient awake and patient oriented x3 Other: Full range of motion. Strength and sensation intact. Neurovascularly intact. Eight normal. Extrem General: normal to inspection <Jenelle Morse DO - Last Filed: 03/09/21 09:12> Initial Vital Signs Initial Vital Signs: Vital Signs Temperature 98.6 F 03/06/21 11:44 Pulse Rate 109 H 03/06/21 11:44 Respiratory Rate 18 03/06/21 11:44 Blood Pressure 146/100 H 03/06/21 11:44 Pulse Oximetry 99 03/06/21 11:44 Course <Anitra Garcia PA-C - Last Filed: 03/06/21 14:00> Orders Ordered: Discontinued Medications Cyclobenzaprine HCl (Cyclobenzaprine 10 Mg Tablet) 10 mg PO NOW ONE Stop: 03/06/21 12:50 Last Admin: 03/06/21 13:01 Dose: 10 mg Documented by: LUZ MARIA Ketorolac Tromethamine (Ketorolac 30 Mg/Ml Vial) 15 mg IM NOW ONE Stop: 03/06/21 12:50 Last Admin: 03/06/21 13:01 Dose: 15 mg Documented by: LUZ MARIA Lidocaine (Lidocaine Patch 1 Each Adh..Patch) 1 each TOP NOW ONE Stop: 03/06/21 12:50 Last Admin: 03/06/21 13:01 Dose: 1 each Documented by: LUZ MARIA Vital Signs Vital signs: Vital Signs - 8 hr 03/06/21 11:44 Temperature 98.6 F Pulse Rate 109 H Respiratory Rate 18 Blood Pressure 146/100 H Pulse Oximetry 99 <Jenelle Morse DO - Last Filed: 03/09/21 09:12> Orders Ordered: Discontinued Medications Cyclobenzaprine HCl (Cyclobenzaprine 10 Mg Tablet) 10 mg PO NOW ONE Stop: 03/06/21 12:50 Last Admin: 03/06/21 13:01 Dose: 10 mg Documented by: LUZ MARIA Ketorolac Tromethamine (Ketorolac 30 Mg/Ml Vial) 15 mg IM NOW ONE Stop: 03/06/21 12:50 Last Admin: 03/06/21 13:01 Dose: 15 mg Documented by: LUZ MARIA Lidocaine (Lidocaine Patch 1 Each Adh..Patch) 1 each TOP NOW ONE Stop: 03/06/21 12:50 Last Admin: 03/06/21 13:01 Dose: 1 each Documented by: LUZ MARIA Vital Signs Vital signs: Vital Signs - 8 hr 03/06/21 11:44 Temperature 98.6 F Pulse Rate 109 H Respiratory Rate 18 Blood Pressure 146/100 H Pulse Oximetry 99 MDM - Back Pain/Injury <Anitra Garcia PA-C - Last Filed: 03/06/21 14:00> Lab Data Labs: Point of Care Testing Test Results Negative Urine Dip Bedside Urine Glucose Negative Bedside Urine Bilirubin - Negative Bedside Urine Ketone - Negative Urine Specific [place] 1.025 Bedside Urine Occult Blood - Negative Bedside Urine pH 6.0 Bedside Urine Protein - Negative Bedside Urine Urobilinogen - Negative Bedside Urine Nitrite - Negative Bedside Urine Leukocytes - Negative Esterase Imaging Data CT Lumbar spine: Radiologist's Impression: PROCEDURE:? CT LUMBAR SPINE WO CON ? INDICATIONS:? Lower back pain ? TECHNIQUE:? Noncontrast 3 mm thick sections acquired from the T12 level to the sacrum.? Sagittal and coronal reformats were constructed.? For radiation dose reduction, the following was used:? automated exposure control.? ? COMPARISON:? None. ? FINDINGS:? Image quality:? Excellent.? ? Bones:? There is normal bony alignment.? No acute vertebral body compression fractures.? No suspicious lytic or blastic bony lesions.? No pars defects.? ? Soft tissues:? No retroperitoneal masses or hematomas.? Visualized aorta is normal in caliber.? Gallbladder is surgically absent.? Partially visualized intrauterine device is centrally positioned within the uterus where visualized.? ? ? IMPRESSION:? No fracture. No acute osseous lesion. If symptoms and/or clinical suspicion for pathology persists, evaluation with MRI should be considered for further assessment. ? ? Dictated by: Mirta Rivera MD, PhD on 03/06/2021 at 13:16 ? ? Approved by: Mirta Rivera MD, PhD on 03/06/2021 at 13:17 ? MDM Narrative Medical decision making narrative: 26-year-old female with past medical history PCOS presents to the ED with 4 months of lower back pain. Concern for back sprain/strain versus disc herniation versus fracture. Unlikely cauda equina, given history on physical exam. He unlikely epidural abscess given no IVDU, systemic signs. Unlikely infective etiology given lack of systemic or meningeal signs. Will order CT lumbar spine, treat symptoms with the Toradol, Flexeril, lidocaine patch. Will reassess. CT lumbar spine with no acute findings. Patient's symptoms improved with Flexeril, lidocaine patch, Toradol. Will discharge home with ED return precautions, PCP follow-up for physical therapy/ortho. Patient verbalized understanding. <Jenelle Morse, DO - Last Filed: 03/09/21 09:12> Lab Data Labs: Point of Care Testing Test Results Negative Urine Dip Bedside Urine Glucose Negative Bedside Urine Bilirubin - Negative Bedside Urine Ketone - Negative Urine Specific [place] 1.025 Bedside Urine Occult Blood - Negative Bedside Urine pH 6.0 Bedside Urine Protein - Negative Bedside Urine Urobilinogen - Negative Bedside Urine Nitrite - Negative Bedside Urine Leukocytes - Negative Esterase Discharge Plan Departure Patient Disposition: Home Clinical Impression: Lower back pain Instructions: DI for Low Back Pain Activity Restrictions/Additional Instructions: You were evaluated in the ED for lower back pain. Your lumbar CT was negative for any fractures or dislocations. Your symptoms are likely due to a back sprain/strain or a herniated disc. Your physical exam was reassuring within normal neurological exam. Your symptoms improved with Toradol and Flexeril. You may continue to take Tylenol and ibuprofen for your symptoms. Please follow-up with your PCP for referral to physical therapy and/or Ortho. Return to the ED if your symptoms worsen, you experience numbness, tingling, weakness, fever, chills. Prescriptions: No Action CA PANTOTHENATE/FOLIC ACID/VIT (MULTIVITAMIN) 1 tab PO QDAY Qty: 0 0RF fluoxetine 40 MG capsule 40 mg PO QDAY Qty: 90 3RF drospirenone-ethinyl estradiol [Jennifer (28)] 0.03 MG/3 MG tablet 1 tab PO QDAY Qty: 3 3RF lamotrigine [Lamictal] 100 MG tablet Qty: 0 0RF [STELAZINE] Qty: 0 0RF aripiprazole [Abilify] 2 MG tablet Qty: 0 0RF sulfamethoxazole-trimethoprim 800 MG/160 MG tablet 1 tab PO BID Qty: 12 0RF sulfamethoxazole-trimethoprim 800 MG/160 MG tablet 1 tab PO BID Qty: 12 0RF lithium carbonate 0RF <Jenelle Morse DO - Last Filed: 03/09/21 09:12> Cosign ED Attending Jairature Attestation: I was immediately available in the department for consultation. Documentation has been reviewed.
[2021-03-06] MEDS: CYCLOBENZAPRINE 10 MG TABLET PO (13:01)
[2021-03-06] MEDS: LIDOCAINE PATCH 1 EACH ADH..PATCH TOP (13:01)
[2021-03-06] MEDS: KETOROLAC 30 MG/ML VIAL 15 MG IM (13:01)
[2021-03-06 13:59] VITALS: BP 154/85; PULSE 89; RESP 18; O2SAT 98
== END 2021-03-06 14:01 | disposition home or self-care (01) ==
PROVIDERS: Emergency Provider Student in an Organized Health Care Education/Training Program; Family Provider Pediatrics
DX: M54.50 Low back pain, unspecified (principal); F17.200 Nicotine dependence, unspecified, uncomplicated
CPT/HCPCS: 72131; 81003; 81025; 96372; 99284; J1885

== ENCOUNTER 2021-04-08 15:50 | Emergency (ER) | payer OTHER, MEDICAID, SELFPAY ==
[2021-04-08 15:56] VITALS: BP 155/75; PULSE 98; RESP 22; TEMP 36.6; O2SAT 98
--- NOTE | 2021-04-08 16:42 | ED_ITS ---
HPI - Back Pain/Injury <Lobito Sullivan PA-C - Last Filed: 04/08/21 16:51> General Chief Complaint: Back Pain/Injury Stated Complaint: Low back constant pain x6 months Time Seen by Provider: 04/08/21 16:23 Source: patient History of Present Illness HPI Narrative: 26-year-old female presenting to the ED with complaints of low back pain. She reports that the pain started approximately 6 months ago after she helped her disabled friend. She states that she picked her up and has had subsequent back pain ever since. Pain is located in her lower back it is nonradiating she denies any radiculopathy paresthesia or paralysis. She denies any recent fall or any trauma. She has tried several home remedies to include pain creams anti- inflammatories magnesium in many other [id number]-[id number] options. She was seen in the ED in February of last year and had a lumbar spine CT done. The results of that CT showed that the spine was normal no identifiable pathology reported. Patient was given prescription for muscle relaxers anti-inflammatories of which she states that the pain did not improve. She reports that she has a an appointment in 3 months for her PCP for evaluation for possible physical therapy. No reported fever dysuria or urinary related symptoms. Related Data Home Medications Medication Instructions Recorded Confirmed CA PANTOTHENATE/FOLIC ACID/VIT 1 tab PO QDAY #0 05/06/12 (MULTIVITAMIN) [STELAZINE] #0 09/25/16 aripiprazole 2 mg tablet (Abilify) #0 09/25/16 lamotrigine 100 mg tablet #0 09/25/16 (Lamictal) lithium carbonate 07/28/17 Previous Rx's Medication Instructions Recorded fluoxetine 40 mg capsule 40 mg PO QDAY #90 cap 12/21/15 drospirenone 3 mg-ethinyl 1 tab PO QDAY #3 pac 06/28/16 estradiol 0.03 mg tablet (Jennifer (28)) sulfamethoxazole 800 1 tab PO BID #12 tab 09/26/16 mg-trimethoprim 160 mg tablet sulfamethoxazole 800 1 tab PO BID #12 tab 10/07/16 mg-trimethoprim 160 mg tablet cyclobenzaprine 10 mg tablet 10 mg PO Q8H PRN #21 tab 04/08/21 ibuprofen 800 mg tablet 800 mg PO Q8H PRN #21 tab 04/08/21 Allergies Allergy/AdvReac Type Severity Reaction Status Date / Time No Known Drug Allergies Allergy Verified 10/09/20 17:11 Review of Systems <Lobito Sullivan PA-C - Last Filed: 04/08/21 16:51> Review of Systems ROS Unobtainable: All systems reviewed & are unremarkable except as noted in HPI and below Constitutional Constitutional: Denies chills, Denies fatigue, Denies fever(s), Denies frequent falls, Denies lethargy and Denies weakness Eyes Eyes: Denies change in vision, Denies eye discharge, Denies irritation and Denies loss of vision ENT Ears, Nose, Mouth, and Throat: Denies change in voice, Denies dizziness, Denies neck pain, Denies sore throat and Denies throat swelling Cardiovascular Cardiovascular: Denies chest pain, Denies irregular heart rhythm, Denies lightheadedness, Denies palpitations, Denies dyspnea, Denies dyspnea on exertion and Denies orthopnea Respiratory Respiratory: Denies cough, Denies dyspnea, Denies dyspnea on exertion and Denies wheezing Gastrointestinal Gastrointestinal: Denies abdominal pain, Denies change in bowel habits, Denies diarrhea, Denies nausea and Denies vomiting Genitourinary Genitourinary: Denies hematuria, Denies flank pain, Denies urinary incontinence and Denies urinary urgency Musculoskeletal Musculoskeletal: Reports back pain, Denies muscle weakness, Denies neck pain, Denies numbness and Denies tingling Integumentary/Breasts Skin/Breast: Denies pruritus, Denies erythema, Denies rash and Denies wounds Neurologic Neurologic: Denies behavioral changes, Denies confusion, Denies dizziness, Denies frequent falls, Denies loss of vision, Denies numbness, Denies tingling and Denies weakness Psychiatric Psychiatric: Denies anxiety, Denies behavioral changes, Denies confusion, Denies depression, Denies homicidal ideation and Denies suicidal ideation Endocrine Endocrine: Denies fatigue, Denies flushing and Denies palpitations Hematologic/Lymphatic Hematologic/Lymphatic: Denies easy bruising Allergic/Immunologic Allergic/Immunologic: Denies urticaria, Denies throat swelling and Denies wheezing Patient History <Lobito Sullivan PA-C - Last Filed: 04/08/21 16:51> Medical History Anxiety Binge eating disorder Bipolar disorder Chronic back pain Depression Heavy menstrual period Irregular menstrual cycle Migraines Ovarian cyst Painful menstrual periods Personality disorder PTSD (post-traumatic stress disorder) Suicidal ideation UTI (urinary tract infection) Surgical History Anesthesia History of cholecystectomy (~01/2017) Family History Father Age: 48 Hypertension High cholesterol Diabetes mellitus Mental health problem Mother Age: 45 Mental health problem Crohn's disease Grandmother Age: 71 Diabetes mellitus Hypertension High cholesterol COPD (chronic obstructive pulmonary disease) Sister Mental health problem Social History Smoking Status: Current some day smoker Smoking Status: Current some day smoker alcohol intake frequency: 0-2 drinks per day Substance Use Type: marijuana Exam <Lobito Sullivan PA-C - Last Filed: 04/08/21 16:51> Initial Vital Signs Initial Vital Signs: Vital Signs Temperature 97.8 F 04/08/21 15:56 Pulse Rate 98 H 04/08/21 15:56 Respiratory Rate 22 04/08/21 15:56 Blood Pressure 155/75 H 04/08/21 15:56 Pulse Oximetry 98 04/08/21 15:56 Const General: cooperative, healthy appearing and anxious Nutritional Appearance: obese Orientation: Orientation [facility] Head: normal to inspection, normocephalic and atraumatic Ears: hearing grossly normal bilaterally and external ears normal Nose: external nose normal and nares normal Face and sinus: normal facial exam Mouth: oral mucosae normal Back/Spine/Pelvis Thoracic/Lumbar Spine: thoracic and lumbar spine normal to inspection, bend over test abnormal, paraspinal tenderness and thoraco-lumbar ROM limited Skin General: no rashes or lesions noted Neuro General: patient alert, patient awake and patient oriented x3 Cranial Nerves: CN's II-XI intact bilaterally Psych Appearance: grossly normal Mental Status: mental status grossly normal Speech and Movement: speech and movement normal Mood: anxious mood Affect: normal affect <Adelina Alejandre MD - Last Filed: 04/08/21 18:19> Initial Vital Signs Initial Vital Signs: Vital Signs Temperature 97.8 F 04/08/21 15:56 Pulse Rate 98 H 04/08/21 15:56 Respiratory Rate 22 04/08/21 15:56 Blood Pressure 155/75 H 04/08/21 15:56 Pulse Oximetry 98 04/08/21 15:56 Course <Lobito Sullivan PA-C - Last Filed: 04/08/21 16:51> Vital Signs Vital signs: Vital Signs - 8 hr 04/08/21 15:56 Temperature 97.8 F Pulse Rate 98 H Respiratory Rate 22 Blood Pressure 155/75 H Pulse Oximetry 98 <Adelina Alejandre MD - Last Filed: 04/08/21 18:19> Vital Signs Vital signs: Vital Signs - 8 hr 04/08/21 15:56 Temperature 97.8 F Pulse Rate 98 H Respiratory Rate 22 Blood Pressure 155/75 H Pulse Oximetry 98 MDM - Back Pain/Injury <Lobito Sullivan PA-C - Last Filed: 04/08/21 16:51> Differential Diagnosis Differential diagnosis: Likely strain of lumbar region MDM Narrative Medical decision making narrative: Patient was evaluated for chronic low back pain. She states the pain started approximately 6 months ago after helping her disabled friend. She has had a CT of her lumbar spine which did not show any identifiable pathology. She has tried many [id number]-jil-[id number] options and is awaiting an appointment with the PCP for further treatment and evaluation. Patient will be discharged home recommend anti-inflammatories muscle relaxers as needed. Discharge Plan Departure Patient Disposition: Home Clinical Impression: Back pain, Strain of lumbar region Instructions: DI for Low Back Pain, DI for Back Spasm Prescriptions: New cyclobenzaprine 10 mg tablet 10 mg PO Q8H PRN (Reason: muscle spasm) Qty: 21 0RF ibuprofen 800 mg tablet 800 mg PO Q8H PRN (Reason: pain) Qty: 21 0RF No Action CA PANTOTHENATE/FOLIC ACID/VIT (MULTIVITAMIN) 1 tab PO QDAY Qty: 0 0RF fluoxetine 40 MG capsule 40 mg PO QDAY Qty: 90 3RF drospirenone-ethinyl estradiol [Jennifer (28)] 0.03 MG/3 MG tablet 1 tab PO QDAY Qty: 3 3RF lamotrigine [Lamictal] 100 MG tablet Qty: 0 0RF [STELAZINE] Qty: 0 0RF aripiprazole [Abilify] 2 MG tablet Qty: 0 0RF sulfamethoxazole-trimethoprim 800 MG/160 MG tablet 1 tab PO BID Qty: 12 0RF sulfamethoxazole-trimethoprim 800 MG/160 MG tablet 1 tab PO BID Qty: 12 0RF lithium carbonate 0RF Referrals: Srinivas Willson MD [Primary Care Provider] - <Adelina Alejandre MD - Last Filed: 04/08/21 18:19> Cosign ED Attending Cosignature Attestation: I was immediately available in the department for consultation throughout this patient's visit. I agree with documentation as above. Adelina Alejandre MD
== END 2021-04-08 16:58 | disposition home or self-care (01) ==
PROVIDERS: Emergency Provider Physician Assistant; Family Provider Physician Assistant; PCP Family Medicine
DX: S39.012A Strain of muscle, fascia and tendon of lower back, initial encounter (principal); F17.200 Nicotine dependence, unspecified, uncomplicated; X50.9XXA Other and unspecified overexertion or strenuous movements or postures, initial encounter; Y93.89 Activity, other specified
CPT/HCPCS: 99281

== ENCOUNTER → 2021-07-11 11:40 | Outpatient (CLI) | payer OTHER, MEDICAID, SELFPAY ==
[2021-07-11 13:06] LABS: Add Manual Diff / Slide Review NO; Basophils Absolute Auto 0 /uL (0-100); Basophils Percent Auto 0.4 % (0-2); Eosinophils Absolute Auto 200 /uL (0-450); Eosinophils Percent Auto 2.1 % (2-4); Hemoglobin 12.9 g/dL (12.0-16.0); Lymphocytes Absolute Auto 3500 /uL (1100-4500); Lymphocytes Percent Auto 37.2 % (25-40); Mean Corpuscular HGB Conc 33.2 % (30-36); Mean Corpuscular Hemoglobin 27.6 PG (26-34); Mean Corpuscular Volume 83.1 fL (80-100); Monocytes Absolute Auto 700 /uL (0-900); Monocytes Percent Auto 7.1 % (3-14); Neutrophils Absolute Auto 5100 /uL (1500-7000); Neutrophils Percent Auto 53.2 % (50-75); Platelet Count 331 X10^3/uL (150-400); Red Blood Cell Count 4.69 X10^6/uL (4.0-5.2); Red Cell Distribution Width 14.7 % (11.6-14.8); White Blood Cell Count 9.5 X10^3/uL (4.5-11.0)
[2021-07-11 13:13] LABS: Hemoglobin A1C% w Est Avg Glu 5.5 % (4.0-6.0)
[2021-07-11 14:08] LABS: Alanine Aminotransferase 24 IU/L (<35); Albumin 4.1 g/dL (3.5-5.0); Albumin Globulin Ratio 1.4 (1.0-2.8); Alkaline Phosphatase 106 U/L (38-126); Aspartate Aminotransferase 27 IU/L (14-36); BUN Creatinine Ratio 18.8 (6-22); Bilirubin Total 0.4 mg/dL (0.2-1.3); Blood Urea Nitrogen 13 mg/dL (7-17); Calcium 9.1 mg/dL (8.4-10.2); Carbon Dioxide 25 mmol/L (22-32); Chloride 106 mmol/L (98-107); Cholesterol 183 mg/dL (140-199); Estimated Glomerular Filt Rate > 60 mL/min (>60); Glucose 86 mg/dL (70-100); HDL Cholesterol 37 mg/dL (40-60); HEMOLYSIS < 15 (0-50); LDL Cholesterol Calculated 109 mg/dL (<100); Potassium 4.2 mmol/L (3.4-5.1); Sodium 140 mmol/L (137-145); Total Protein 7.1 g/dL (6.3-8.2); Triglycerides 187 mg/dL (35-150)
[2021-07-11 14:32] LABS: TSH w/ Reflex to FT4 3.45 uIU/mL (0.47-4.68)
== END ==
PROVIDERS: Family Provider Physician Assistant; PCP Family Medicine; Referring Provider Family Medicine; Visit Provider Family Medicine
DX: F33.9 Major depressive disorder, recurrent, unspecified (principal); F41.9 Anxiety disorder, unspecified; F43.10 Post-traumatic stress disorder, unspecified; F50.81 Binge eating disorder; G43.909 Migraine, unspecified, not intractable, without status migrainosus; K58.9 Irritable bowel syndrome, unspecified
CPT/HCPCS: 36415; 80053; 80061; 83036; 84443; 85025

== ENCOUNTER 2021-09-13 03:04 | Emergency (ER) | payer OTHER, MEDICAID, SELFPAY ==
[2021-09-13 03:11] VITALS: BP 145/87; PULSE 81; RESP 16; TEMP 36.1; O2SAT 97; BMI 60.0
--- NOTE | 2021-09-13 04:58 | ED_ITS ---
HPI - Female Genitourinary General Chief complaint: Urogenital-Female Stated complaint: period cup is stuck Time Seen by Provider: 09/13/21 04:37 Source: patient Mode of arrival: Ambulatory History of Present Illness HPI Narrative: Patient here with . Patient trying to use menstrual cup in it is stuck in the vagina. It was placed 12 hours ago. No other complaints. Has not used this device in the past. No complaints of pain. tried removing it at home without success Related Data Previous Rx's Medication Instructions Recorded sumatriptan succinate 25 mg tablet See Rx Instructions PO .COMPLEX 06/12/21 #20 tabs escitalopram oxalate 20 mg tablet 20 mg PO DAILY #90 tabs 08/16/21 (Lexapro) norelgestromin 150 mcg-e.estradiol 1 patch transdermal Q7D #3 ea 08/16/21 35 mcg/24 hr weekly transderm patch (Xulane) Allergies Allergy/AdvReac Type Severity Reaction Status Date / Time No Known Drug Allergies Allergy Verified 08/16/21 11:26 Review of Systems Review of Systems Narrative: GENERAL: Denies chills, fatigue, malaise, fever, sweats. HEENT: Denies sinus pain, ear pain, sore throat RESPIRATORY: Denies dyspnea, cough CARDIOVASCULAR: Denies chest pain, palpitations GASTROINTESTINAL: Denies nausea, vomiting, abdominal pain : Denies dysuria, frequency, hematuria, positive for foreign body MUSCULOSKELETAL: denies muscle or bony pain SKIN: Denies rash, skin lesions NEUROLOGIC: Denies weakness, numbness ROS Unobtainable: All systems reviewed & are unremarkable except as noted in HPI and below Patient History Medical History Anxiety Binge eating disorder Bipolar disorder Chronic back pain Depression Heavy menstrual period Irregular menstrual cycle Migraines Ovarian cyst Painful menstrual periods Personality disorder PTSD (post-traumatic stress disorder) Suicidal ideation UTI (urinary tract infection) Surgical History Anesthesia History of cholecystectomy (~01/2017) Family History Father Age: 48 Hypertension High cholesterol Diabetes mellitus Mental health problem Mother Age: 45 Mental health problem Crohn's disease Grandmother Age: 71 Diabetes mellitus Hypertension High cholesterol COPD (chronic obstructive pulmonary disease) Sister Mental health problem alcohol intake frequency: 0-2 drinks per day Substance Use Type: marijuana Exam Narrative Exam Narrative: GENERAL: in no distress, not toxic not dyspneic HEAD: Normocephalic. : Female nurse Daisy and at bedside to wholesale buyer and commercial lines account assistant. Di gital exam able to palpate menstrual cup. Speculum with light source used and ring forceps able to slowly and gently retract back the menstrual cup with ease. No tearing of the skin. Entire cup removed without damage. Re-examination with speculum no evidence of retained foreign body or fragments of foreign body in the vagina. Small amount of old blood in vaginal vault. Digital exam no palpable foreign body NEURO: AOx4. SKIN: Warm and dry PSYCH: Not anxious, is cooperative Initial Vital Signs Initial Vital Signs: Vital Signs Temperature 97.0 F L 09/13/21 03:11 Pulse Rate 81 09/13/21 03:11 Respiratory Rate 16 09/13/21 03:11 Blood Pressure 145/87 H 09/13/21 03:11 Pulse Oximetry 97 09/13/21 03:11 Oxygen Delivery Method 09/13/21 03:11 Course Course Course Narrative: No new issues during course of stay Reevaluation(s) Reevaluation #1: Patient tolerated removal of foreign body without any complications or difficulties Time: 05:06 Vital Signs Vital signs: Vital Signs - 8 hr 09/13/21 03:11 09/13/21 05:15 Temperature 97.0 F L Pulse Rate 81 75 Respiratory Rate 16 16 Blood Pressure 145/87 H 135/72 Pulse Oximetry 97 98 Oxygen Delivery Method Room Air Room Air MDM - Female Genitourinary Differential Diagnosis Differential diagnosis: Likely other (Retained foreign body in the vagina) MDM Narrative Medical decision making narrative: Appropriate for discharge home. No laboratory studies or imaging indicated. Foreign body was able to be removed in 1 piece. Return precautions reviewed with patient. Informed to continue using sanitary pads Discharge Plan Departure Patient Disposition: Home Clinical Impression: Acute foreign body of vagina Activity Restrictions/Additional Instructions: Do not use menstrual cups. Continue using menstrual pads. Return if worse if any questions or concerns. Prescriptions: No Action sumatriptan succinate 25 mg tablet See Rx Instructions PO .COMPLEX Qty: 20 0RF Rx Instructions: take 1 tab at onset of headache; if no relief may repeat 1 tab after at least 2 hrs; max = 4 tabs/24 hr PO Xulane 150-35 mcg/24 hr patch weekly 1 patch transdermal Q7D Qty: 3 3RF Rx Instructions: apply once weekly for 3 weeks of a 4-week cycle. Generic is fine escitalopram oxalate [Lexapro] 20 mg tablet 20 mg PO DAILY Qty: 90 2RF Referrals: Srinivas Willson MD [Primary Care Provider] - Visit Report Forms: Patient Portal/API
[2021-09-13 05:15] VITALS: BP 135/72; PULSE 75; RESP 16; O2SAT 98
== END 2021-09-13 05:17 | disposition home or self-care (01) ==
PROVIDERS: Emergency Provider Emergency Medicine; Family Provider Physician Assistant; PCP Family Medicine
DX: T19.2XXA Foreign body in vulva and vagina, initial encounter (principal)
CPT/HCPCS: 99281

== ENCOUNTER → 2024-01-20 12:56 | Outpatient (CLI) | payer MEDICARE, OTHER, MEDICAID, SELFPAY | PROVIDERS: Family Provider Physician Assistant; PCP Family Medicine; Visit Provider Family Medicine | DX: R30.0 Dysuria (principal) | CPT/HCPCS: 87086 ==